=== PATIENT | male | born 1950 | race Caucasian/White ===

== ENCOUNTER 2017-02-06 08:42 | Observation (INO) | payer MEDICARE, OTHER ==
[~2017-02-06] VITALS: Ht 172.7 cm; Wt 68.2 kg
[2017-02-06] MEDS: OXYGEN THERAPY IH SCH ×2 (08:00→22:56)
[~2017-02-06 08:42] MED LIST: CALC-789 PO; CHON250C PO; CeFAZolin 2 GM/DEXTROSE 0 ML IV ONE; CeFAZolin 2 GM/DEXTROSE 50 ML IV ONE; DEXAMETHASONE SOD PHOS 4 MG/ML VIAL IVP ONE; FentaNYL CITRATE-PF 100 MCG/2 ML VIAL IVP ONE; FentaNYL CITRATE-PF 100 MCG/2 ML VIAL IVP PRN; GLYCOPYRROLATE 0.2 MG/ML VIAL IM ONE; HYDR-3971 PO; HYDROmorphone 2 MG/ML SYRINGE IVP ONE; HYDROmorphone 2 MG/ML SYRINGE IVP PRN; LIDOCAINE HCL/PF 2% 5 ML VIAL IM ONE; LISI20TA PO; MEPERIDINE-PF 25 MG/ML SYRINGE IVP PRN; METOCLOPRAMIDE HCL 5 MG/ML 2 ML VIAL IVP ONE; MIDAZOLAM HCL 2 MG/2 ML VIAL IVP ONE; MULT-248 PO; NALO12.5 PO; NEOSTIGMINE METHYLSULFATE 1 MG/ML 10 ML VIAL IVP ONE; ONDANSETRON HCL 4 MG/2 ML VIAL IVP ONE; PHENYLEPHRINE HCL 10 MG/ML VIAL IVP ONE; RINGERS SOLUTION,LACTATED 1,000 ML IV ONE; ROCURONIUM BROMIDE 10 MG/ML 5 ML VIAL IVP ONE; SALM1CAP PO; SIMV-259 PO; SUCCINYLCHOLINE CHLORIDE 20 MG/ML 10 ML VIAL IVP ONE
[2017-02-06] MEDS ORDERED: TRAM50TA4 PO (09:16)
[2017-02-06] MEDS: ACETAMINOPHEN 1000 MG/ISO-OSM 100 ML IV SCH ×2 (10:00→18:14)
[2017-02-06] MEDS ORDERED: OxyCODONE HCL/ACETAMINOPHEN 5-325 MG TABLET PO PRN (10:00)
[2017-02-06] MEDS ORDERED: VANCOMYCIN HCL 1 GM/VIAL ONE (10:46)
[2017-02-06] MEDS: BUPIVACAINE HCL/PF 0.5% 30 ML VIAL ONE ×2 (10:57→11:08)
[2017-02-06] MEDS ORDERED: SODIUM CHLORIDE 0.9% 1,000 ML IV ONE (11:22)
[2017-02-06] MEDS ORDERED: MEPERIDINE-PF 25 MG/ML SYRINGE ONE (12:19)
[2017-02-06] MEDS: CYCLOBENZAPRINE HCL 10 MG TABLET PO SCH ×2 (13:49→22:56)
[2017-02-06] MEDS: HYDROmorphone 2 MG/ML SYRINGE IVP PRN ×4 (13:49→22:55)
[2017-02-06 13:50] VITALS: BP 124/71
[2017-02-06 16:00] VITALS: BP 124/63
[2017-02-06 19:35] VITALS: BP 114/69
[2017-02-06 23:00] VITALS: BP 109/61
[2017-02-07] MEDS: ACETAMINOPHEN 1000 MG/ISO-OSM 100 ML IV SCH ×2 (02:16→09:40)
[2017-02-07 03:15] VITALS: BP 114/57
[2017-02-07] MEDS: HYDROmorphone 2 MG/ML SYRINGE IVP PRN ×2 (03:16→06:56)
[2017-02-07 07:40] VITALS: BP 124/69
[2017-02-07] MEDS: OXYGEN THERAPY IH SCH (08:00)
[2017-02-07] MEDS: CYCLOBENZAPRINE HCL 10 MG TABLET PO SCH (08:25)
[2017-02-07] MEDS ORDERED: HYDROmorphone 2 MG/ML SYRINGE IVP PRN (10:45)
[2017-02-07 12:05] VITALS: BP 130/69
== END 2017-02-07 12:50 | disposition home or self-care (01) ==
LOC: 4E 08:42
PROVIDERS: ADMIT Hospitalist; ATTEND Orthopaedic Surgery Orthopaedic Surgery of the Spine
DX: M48.06 Spinal stenosis, lumbar region (principal); M79.604 Pain in right leg
CPT/HCPCS: 63056; 87081; 96374; 96375; 96376 ×2; 97161; 97165; 97530; G0238; G0378 ×2; G8978; G8979; G8980; G8987; G8988; G8989; J0131 ×2; J0330; J0690; J1100; J1170 ×2; J2175; J2250; J2370; J2405; J2765; J3010; J3370; J3490 ×4; J7030; J7120

== ENCOUNTER 2020-02-18 10:31 | Emergency (ER) | payer MEDICARE, OTHER ==
[~2020-02-18] VITALS: Ht 170.2 cm; Wt 68.2 kg
[~2020-02-18 10:31] MED LIST changes: -CeFAZolin 2 GM/DEXTROSE 0 ML IV ONE; -CeFAZolin 2 GM/DEXTROSE 50 ML IV ONE; -DEXAMETHASONE SOD PHOS 4 MG/ML VIAL IVP ONE; -FentaNYL CITRATE-PF 100 MCG/2 ML VIAL IVP ONE; -FentaNYL CITRATE-PF 100 MCG/2 ML VIAL IVP PRN; -GLYCOPYRROLATE 0.2 MG/ML VIAL IM ONE; -HYDR-3971 PO; +HYDR-4069 PO; -HYDROmorphone 2 MG/ML SYRINGE IVP ONE; -HYDROmorphone 2 MG/ML SYRINGE IVP PRN; -LIDOCAINE HCL/PF 2% 5 ML VIAL IM ONE; -MEPERIDINE-PF 25 MG/ML SYRINGE IVP PRN; -METOCLOPRAMIDE HCL 5 MG/ML 2 ML VIAL IVP ONE; -MIDAZOLAM HCL 2 MG/2 ML VIAL IVP ONE; -NEOSTIGMINE METHYLSULFATE 1 MG/ML 10 ML VIAL IVP ONE; -ONDANSETRON HCL 4 MG/2 ML VIAL IVP ONE; -PHENYLEPHRINE HCL 10 MG/ML VIAL IVP ONE; -RINGERS SOLUTION,LACTATED 1,000 ML IV ONE; -ROCURONIUM BROMIDE 10 MG/ML 5 ML VIAL IVP ONE; -SUCCINYLCHOLINE CHLORIDE 20 MG/ML 10 ML VIAL IVP ONE; +TRAM50TA4 PO
[2020-02-18] MEDS ORDERED: GABA-1216 PO (10:43)
[2020-02-18 11:19] LABS: BASOPHILS % (AUTO) 0.4 % (0.0-2.0); EOSINOPHILS % (AUTO) 0.1 % (1.0-6.0); HEMOGLOBIN 12.9 g/dL (13.5-17.5); LYMPHOCYTES # (AUTO) 0.5 K/uL (1.0-4.8); MEAN CORPUSCULAR HEMOGLOBIN 33.8 pg (26.0-34.0); MEAN CORPUSCULAR HGB CONC 34.8 G/dL (31.0-37.0); MEAN CORPUSCULAR VOLUME 97 fL (80-100); MONOCYTES # (AUTO) 0.4 K/uL (0.1-1.0); NEUTROPHILS # (AUTO) 4.8 K/uL (1.8-7.7); NEUTROPHILS % (AUTO) 84.5 % (40.0-70.0); PLATELET COUNT (AUTO) 211 K/uL (150-450); RED BLOOD CELL COUNT(AUTO) 3.81 MIL/uL (4.50-5.90); RED CELL DISTRIBUTION WIDTH 13.4 % (11.5-14.5)
[2020-02-18 11:27] LABS: ANION GAP 10 mmol/L (8-16); CALCIUM, TOTAL 9.5 mg/dL (8.8-10.5); CARBON DIOXIDE 25 mmol/L (22-29); CHLORIDE 94 mmol/L (98-107); GLUCOSE,RANDOM 102 mg/dL (70-110); POTASSIUM 4.3 mmol/L (3.5-5.1); SODIUM SERUM 129 mmol/L (136-145); UREA NITROGEN, BLOOD 6 mg/dL (7-18)
[2020-02-18 11:28] LABS: GLOMERULAR FILTR. RATE CALC > 60 mL/min (>60)
[2020-02-18 11:33] LABS: ALANINE AMINOTRANSFERASE 71 U/L (12-78); ALBUMIN 3.6 g/dL (3.4-5.0); ALKALINE PHOSPHATASE 55 U/L (46-116); ASPARTATE AMINOTRANSFERASE 55 U/L (15-37); BILIRUBIN,TOTAL 0.4 mg/dL (0.1-1.0); TOTAL PROTEIN, SERUM 6.9 g/dL (6.4-8.2)
[2020-02-18 13:27] VITALS: BP 140/81
== END 2020-02-18 13:42 | disposition short-term general hospital (02) ==
LOC: EMS 10:39
DX: S12.120A Other displaced dens fracture, initial encounter for closed fracture (principal); W19.XXXA Unspecified fall, initial encounter; Y93.89 Activity, other specified; Y92.89 Other specified places as the place of occurrence of the external cause; Y99.8 Other external cause status
CPT/HCPCS: 70450; 72125; 93005; 99291; 36415-L1; 36415-TC; 71045-TC